=== PATIENT | female | born 1990 | race African-American/Black ===

== ENCOUNTER 2016-09-23 11:01 | Emergency (ER) | payer SELFPAY ==
[~2016-09-23] VITALS: Ht 157.5 cm; Wt 154.5 kg
[~2016-09-23 11:01] MED LIST: ZOFRAN ODT4 MG PO
[2016-09-23 11:08] VITALS: BP 123/88; TEMP 97.1
[2016-09-23 11:53] VITALS: PULSE 85
[2016-09-24] MEDS ORDERED: DOXYCYCLINE 10100 MG PO (15:29)
== END 2016-09-23 11:54 | disposition home or self-care (01) ==
LOC: COL.ER 11:01
DX: H65.92 Unspecified nonsuppurative otitis media, left ear (principal); F17.210 Nicotine dependence, cigarettes, uncomplicated

== ENCOUNTER 2016-09-24 12:54 | Emergency (ER) | payer SELFPAY ==
[~2016-09-24] VITALS: Ht 157.5 cm; Wt 152.7 kg
[2016-09-24 13:00] VITALS: BP 120/96; TEMP 98.1
[2016-09-24] MEDS ORDERED: DOXYCYCLINE 10100 MG PO (15:29)
[2016-09-24 15:53] VITALS: PULSE 86
== END 2016-09-24 15:54 | disposition home or self-care (01) ==
LOC: COL.ER 12:54
DX: J20.9 Acute bronchitis, unspecified (principal); R00.2 Palpitations
CPT/HCPCS: J8540

== ENCOUNTER 2016-10-11 17:30 | Emergency (ER) | payer SELFPAY ==
[~2016-10-11] VITALS: Ht 157.5 cm; Wt 156.0 kg
[~2016-10-11 17:30] MED LIST changes: +DOXYCYCLINE 10100 MG PO
[2016-10-11 17:35] VITALS: BP 110/83; TEMP 99.2
[2016-10-11 19:02] LABS: INFLUENZA B NEGATIVE
[2016-10-11] MEDS ORDERED: AMOXICILLIN 50500 MG PO (19:21)
[2016-10-11 19:52] VITALS: PULSE 94
== END 2016-10-11 19:53 | disposition home or self-care (01) ==
LOC: COL.ER 17:30
PROVIDERS: Nurse Practitioner
DX: H66.92 Otitis media, unspecified, left ear (principal)

== ENCOUNTER 2016-11-10 11:30 | Emergency (ER) | payer SELFPAY ==
[~2016-11-10] VITALS: Ht 157.5 cm; Wt 155.7 kg
[2016-11-10 11:30] VITALS: BP 133/74; PULSE 90; TEMP 97.7
[~2016-11-10 11:30] MED LIST changes: +AMOXICILLIN 50500 MG PO
[2016-11-10] MEDS ORDERED: NAPROSYN500 MG PO (12:09)
[2016-11-10 12:11] LABS: PH 7 (5-8); SQUAMOUS EPITHELIAL None Seen /hpf; URINE APPEARANCE Clear; URINE BACTERIA None Seen /hpf; URINE BILIRUBIN Negative (NEGATIVE); URINE BLOOD 1+ (NEGATIVE); URINE COLOR Straw; URINE GLUCOSE Negative (NEGATIVE); URINE KETONE Negative (NEGATIVE); URINE RBC 0-2 /hpf; URINE UROBILINOGEN Negative (NEGATIVE); URINE WBC 0-2 /hpf
== END 2016-11-10 12:24 | disposition home or self-care (01) ==
LOC: COL.ER 11:30
PROVIDERS: Emergency Medicine
DX: M79.641 Pain in right hand (principal); R20.0 Anesthesia of skin

== ENCOUNTER 2017-03-14 07:17 | Emergency (ER) | payer SELFPAY ==
[~2017-03-14] VITALS: Ht 157.5 cm; Wt 155.5 kg
[~2017-03-14 07:17] MED LIST changes: +NAPROSYN500 MG PO
[2017-03-14 07:26] VITALS: BP 134/92; TEMP 97
[2017-03-14] MEDS ORDERED: NORCO 325 MG-51 TAB PO (07:29)
[2017-03-14] MEDS ORDERED: AMOXICILLIN 50500 MG PO (07:30)
[2017-03-14 08:19] LABS: BASO % 0.7 % (0.0-2.0); EOS # 0.1 (0.0-0.7); EOS % 1.7 % (0-4.0); GRAN # 3.2 (1.4-6.5); GRAN % 54.6 % (42.2-75.2); HEMATOCRIT 38.9 % (37.0-47.0); HEMOGLOBIN 12.6 g/dl (12.5-16.0); LYMPH % 34.9 % (20.0-51.0); MEAN CELL VOLUME 84 fl (80.0-100.0); MEAN CORPUSCULAR HEMOGLOBIN 27 pg (27.0-31.0); MEAN CORPUSCULAR HGB CONC 32 g/dl (33.0-37.0); MEAN PLATELET VOLUME 8.7 fl (7.4-10.4); MONO # 0.5 (0.1-0.6); MONO % 7.9 % (1.7-9.3); PLATELET COUNT 376 K/mm3 (130-400); RED BLOOD COUNT 4.61 M/mm3 (4.10-5.30); REDCELL DISTRIBUTION WIDTH-CV 13.7 % (11.5-14.5); WHITE BLOOD COUNT 5.8 K/mm3 (4.8-10.8)
[2017-03-14 08:32] LABS: ANION GAP 10 mmol/L (7-16); BLOOD UREA NITROGEN 10 mg/dL (7-17); CARBON DIOXIDE 25 mmol/L (22-30); CHLORIDE 105 mmol/L (98-107); CREATININE, serum 0.81 mg/dL (0.52-1.25); GLUCOSE 99 mg/dL (74-106); SODIUM 140 mmol/L (137-145)
[2017-03-14 08:44] LABS: TROPONIN-I < 0.012 ng/mL (0.000-0.034)
[2017-03-14 09:00] VITALS: PULSE 73
== END 2017-03-14 09:00 | disposition home or self-care (01) ==
LOC: COL.ER 07:17
PROVIDERS: Physician Assistant
DX: K20.9 Esophagitis, unspecified (principal); F17.210 Nicotine dependence, cigarettes, uncomplicated

== ENCOUNTER 2017-11-18 15:23 | Emergency (ER) | payer OTHER ==
[~2017-11-18] VITALS: Ht 157.5 cm; Wt 142.6 kg
[~2017-11-18 15:23] MED LIST changes: +NORCO 325 MG-51 TAB PO
[2017-11-18 15:48] VITALS: BP 134/83; PULSE 92; TEMP 98
[2017-11-18] MEDS ORDERED: ROBAXIN 75750 MG/TAB PO (16:49)
== END 2017-11-18 17:00 | disposition home or self-care (01) ==
LOC: COL.ER 15:23
DX: S39.012A Strain of muscle, fascia and tendon of lower back, initial encounter (principal); Z87.891 Personal history of nicotine dependence; V43.62XA Car passenger injured in collision with other type car in traffic accident, initial encounter; Y93.I9 Activity, other involving external motion

== ENCOUNTER 2019-07-11 20:56 | Emergency (ER) | payer SELFPAY ==
[~2019-07-11] VITALS: Ht 157.5 cm; Wt 165.5 kg
[~2019-07-11 20:56] MED LIST changes: +ROBAXIN 75750 MG/TAB PO
[2019-07-11 21:04] VITALS: BP 122/68; TEMP 98.4
[2019-07-11 21:43] LABS: BASO % 0.6 % (0.0-2.0); EOS # 0.1 (0.0-0.7); EOS % 1.5 % (0-4.0); GRAN # 3.6 (1.4-6.5); GRAN % 50.1 % (42.2-75.2); HEMATOCRIT 42.1 % (37.0-47.0); HEMOGLOBIN 13.5 g/dl (12.5-16.0); LYMPH # 2.9 (1.2-3.4); LYMPH % 40.4 % (20.0-51.0); MEAN CELL VOLUME 87 fl (80.0-100.0); MEAN CORPUSCULAR HEMOGLOBIN 28 pg (27.0-31.0); MEAN CORPUSCULAR HGB CONC 32 g/dl (33.0-37.0); MEAN PLATELET VOLUME 8.8 fl (7.4-10.4); MONO # 0.5 (0.1-0.6); MONO % 7.1 % (1.7-9.3); PLATELET COUNT 361 K/mm3 (130-400); RED BLOOD COUNT 4.83 M/mm3 (4.10-5.30); REDCELL DISTRIBUTION WIDTH-CV 13.8 % (11.5-14.5)
[2019-07-11 21:58] LABS: ALBUMIN 4.1 gm/dL (3.5-5.0); BILIRUBIN,TOTAL 0.4 mg/dL (0.0-1.0); C-REACTIVE PROTEIN 1.2 mg/dL (0.0-0.9); CALCIUM 9.1 mg/dL (8.4-10.2); CREATININE, serum 0.78 (0.52-1.25); TOTAL PROTEIN 7.7 gm/dL (6.4-8.2)
[2019-07-11 23:05] LABS: COLLECTION METHOD CLEAN CATCH
[2019-07-11 23:10] LABS: PH 7 (5-8); SQUAMOUS EPITHELIAL 0-2 /hpf; URINE APPEARANCE Clear; URINE BACTERIA None Seen /hpf; URINE BILIRUBIN Negative (NEGATIVE); URINE BLOOD Negative (NEGATIVE); URINE COLOR Yellow; URINE GLUCOSE Negative (NEGATIVE); URINE KETONE Negative (NEGATIVE); URINE LEUKOCYTE ESTERASE Negative (NEGATIVE); URINE NITRATE Negative (NEGATIVE); URINE PROTEIN(semi-quant) Negative (NEGATIVE); URINE RBC 0-2 /hpf
[2019-07-11 23:31] VITALS: PULSE 76
== END 2019-07-11 23:31 | disposition home or self-care (01) ==
LOC: COL.ER 20:56
PROVIDERS: Nurse Practitioner
DX: A59.9 Trichomoniasis, unspecified (principal); F17.210 Nicotine dependence, cigarettes, uncomplicated

== ENCOUNTER 2020-05-28 11:06 | Emergency (ER) | payer BC ==
[~2020-05-28] VITALS: Ht 157.5 cm; Wt 149.9 kg
[2020-05-28 11:11] VITALS: TEMP 98
[2020-05-28] MEDS ORDERED: FASTIN30 MG PO (11:17)
[2020-05-28 13:02] LABS: COLLECTION METHOD CLEAN CATCH
[2020-05-28 13:08] LABS: MUCOUS Present /lpf; PH 5 (5-8); SQUAMOUS EPITHELIAL 0-2 /hpf; URINE APPEARANCE Clear; URINE BACTERIA None Seen /hpf; URINE BILIRUBIN Negative (NEGATIVE); URINE BLOOD Negative (NEGATIVE); URINE COLOR Yellow; URINE GLUCOSE Negative (NEGATIVE); URINE KETONE Negative (NEGATIVE); URINE LEUKOCYTE ESTERASE Negative (NEGATIVE); URINE NITRATE Negative (NEGATIVE); URINE PROTEIN(semi-quant) Negative (NEGATIVE); URINE RBC 0-2 /hpf; URINE UROBILINOGEN Negative (NEGATIVE)
[2020-05-28 13:27] LABS: BASO % 0.6 % (0.0-2.0); EOS # 0.1 (0.0-0.7); EOS % 1.2 % (0-4.0); GRAN # 2.6 (1.4-6.5); GRAN % 51.6 % (42.2-75.2); HEMOGLOBIN 12.5 g/dl (12.5-16.0); LYMPH # 1.9 (1.2-3.4); LYMPH % 39.1 % (20.0-51.0); MEAN CELL VOLUME 88 fl (80.0-100.0); MEAN CORPUSCULAR HEMOGLOBIN 28 pg (27.0-31.0); MEAN CORPUSCULAR HGB CONC 32 g/dl (33.0-37.0); MEAN PLATELET VOLUME 9.1 fl (7.4-10.4); MONO # 0.4 (0.1-0.6); MONO % 7.3 % (1.7-9.3); PLATELET COUNT 264 K/mm3 (130-400); RED BLOOD COUNT 4.43 M/mm3 (4.10-5.30); REDCELL DISTRIBUTION WIDTH-CV 13.4 % (11.5-14.5)
[2020-05-28 14:24] VITALS: BP 116/78; PULSE 66
== END 2020-05-28 14:38 | disposition home or self-care (01) ==
LOC: COL.ER 11:06
PROVIDERS: Emergency Medicine
DX: R11.2 Nausea with vomiting, unspecified (principal); R63.0 Anorexia; R19.7 Diarrhea, unspecified; R10.13 Epigastric pain
CPT/HCPCS: J2550

== ENCOUNTER 2020-09-30 18:23 | Emergency (ER) | payer BC ==
[~2020-09-30] VITALS: Ht 157.5 cm; Wt 142.7 kg
[~2020-09-30 18:23] MED LIST changes: +FASTIN30 MG PO
[2020-09-30 19:00] VITALS: TEMP 97.5
[2020-09-30 21:11] LABS: COLLECTION METHOD CLEAN CATCH
[2020-09-30 21:17] LABS: MUCOUS Present /lpf; PH 6 (5-8); SQUAMOUS EPITHELIAL 0-2 /hpf; URINE APPEARANCE Clear; URINE BACTERIA Rare /hpf; URINE BILIRUBIN Negative (NEGATIVE); URINE BLOOD Negative (NEGATIVE); URINE COLOR Yellow; URINE GLUCOSE Negative (NEGATIVE); URINE KETONE Negative (NEGATIVE); URINE LEUKOCYTE ESTERASE Negative (NEGATIVE); URINE NITRATE Negative (NEGATIVE); URINE PROTEIN(semi-quant) Negative (NEGATIVE); URINE RBC None Seen /hpf; URINE UROBILINOGEN Negative (NEGATIVE)
[2020-09-30 23:04] LABS: BASO % 0.4 % (0.0-2.0); EOS # 0.1 (0.0-0.7); EOS % 1.7 % (0-4.0); GRAN # 3.9 (1.4-6.5); GRAN % 54.8 % (42.2-75.2); HEMATOCRIT 39.6 % (37.0-47.0); LYMPH # 2.5 (1.2-3.4); LYMPH % 34.9 % (20.0-51.0); MEAN CELL VOLUME 87 fl (80.0-100.0); MEAN CORPUSCULAR HEMOGLOBIN 29 pg (27.0-31.0); MEAN CORPUSCULAR HGB CONC 33 g/dl (33.0-37.0); MEAN PLATELET VOLUME 8.8 fl (7.4-10.4); MONO # 0.6 (0.1-0.6); MONO % 8.1 % (1.7-9.3); PLATELET COUNT 321 K/mm3 (130-400); RED BLOOD COUNT 4.55 M/mm3 (4.10-5.30); REDCELL DISTRIBUTION WIDTH-CV 13.2 % (11.5-14.5)
[2020-09-30 23:16] LABS: BILIRUBIN,TOTAL 0.6 mg/dL (0.0-1.0); C-REACTIVE PROTEIN 1.9 mg/dL (0.0-0.9); CREATININE, serum 0.85 (0.52-1.25); POTASSIUM 4.1 mmol/L (3.4-5.0); TOTAL PROTEIN 7.8 gm/dL (6.4-8.2)
[2020-09-30] MEDS ORDERED: FLAGYL500 MG PO (23:32)
[2020-09-30 23:56] VITALS: BP 135/89; PULSE 91
[2021-01-26] MEDS ORDERED: AMOXICILLIN 50500 MG PO (11:44)
== END 2020-09-30 23:56 | disposition home or self-care (01) ==
LOC: COL.ER 18:23
PROVIDERS: Nurse Practitioner
DX: N76.0 Acute vaginitis (principal); R10.84 Generalized abdominal pain; F17.210 Nicotine dependence, cigarettes, uncomplicated; Z32.02 Encounter for pregnancy test, result negative
CPT/HCPCS: J1885

== ENCOUNTER 2020-11-08 11:13 | Emergency (ER) | payer BC ==
[~2020-11-08] VITALS: Ht 157.5 cm; Wt 140.9 kg
[~2020-11-08 11:13] MED LIST changes: +FLAGYL500 MG PO
[2020-11-08 11:31] VITALS: TEMP 97.7
[2020-11-08 12:31] LABS: COLLECTION METHOD CLEAN CATCH
[2020-11-08 12:40] LABS: MUCOUS Present /lpf; PH 5 (5-8); SQUAMOUS EPITHELIAL 0-2 /hpf; URINE APPEARANCE Clear; URINE BACTERIA None Seen /hpf; URINE BILIRUBIN Negative (NEGATIVE); URINE BLOOD Negative (NEGATIVE); URINE COLOR Yellow; URINE GLUCOSE Negative (NEGATIVE); URINE KETONE Negative (NEGATIVE); URINE LEUKOCYTE ESTERASE Negative (NEGATIVE); URINE NITRATE Negative (NEGATIVE); URINE PROTEIN(semi-quant) Negative (NEGATIVE); URINE RBC None Seen /hpf; URINE UROBILINOGEN Negative (NEGATIVE)
[2020-11-08 12:46] LABS: BASO % 0.5 % (0.0-2.0); EOS # 0.1 (0.0-0.7); EOS % 1.1 % (0-4.0); GRAN # 2.7 (1.4-6.5); GRAN % 50.1 % (42.2-75.2); HEMATOCRIT 41.7 % (37.0-47.0); HEMOGLOBIN 13.3 g/dl (12.5-16.0); LYMPH # 2.3 (1.2-3.4); LYMPH % 42.2 % (20.0-51.0); MEAN CELL VOLUME 90 fl (80.0-100.0); MEAN CORPUSCULAR HEMOGLOBIN 29 pg (27.0-31.0); MEAN CORPUSCULAR HGB CONC 32 g/dl (33.0-37.0); MEAN PLATELET VOLUME 8.9 fl (7.4-10.4); MONO # 0.3 (0.1-0.6); MONO % 5.9 % (1.7-9.3); PLATELET COUNT 345 K/mm3 (130-400); RED BLOOD COUNT 4.66 M/mm3 (4.10-5.30); REDCELL DISTRIBUTION WIDTH-CV 13.5 % (11.5-14.5)
[2020-11-08 12:57] LABS: ALANINE AMINOTRANSFERASE 16 U/L (4-34); ALBUMIN 4.2 gm/dL (3.5-5.0); ALKALINE PHOSPHATASE 75 U/L (50-136); ANION GAP 8 mmol/L (7-16); AST,SGOT 60 U/L (15-37); BILIRUBIN,TOTAL 0.3 mg/dL (0.0-1.0); BLOOD UREA NITROGEN 13 mg/dL (7-17); CARBON DIOXIDE 26 mmol/L (22-30); CHLORIDE 106 mmol/L (98-107); CREATININE, serum 0.81 (0.52-1.25); GLUCOSE 88 mg/dL (74-106); LIPASE 67 U/L (23-300); POTASSIUM 3.8 mmol/L (3.4-5.0); SODIUM 140 mmol/L (137-145); TOTAL PROTEIN 8.6 gm/dL (6.4-8.2)
[2020-11-08 13:36] LABS: TROPONIN-I < 0.012 ng/mL (0.000-0.035)
[2020-11-08 14:07] VITALS: BP 115/68; PULSE 77
[2021-01-26] MEDS ORDERED: AMOXICILLIN 50500 MG PO (11:44)
== END 2020-11-08 14:09 | disposition home or self-care (01) ==
LOC: COL.ER 11:13
PROVIDERS: Emergency Medicine
DX: R74.01 Elevation of levels of liver transaminase levels (principal); R53.81 Other malaise; F17.210 Nicotine dependence, cigarettes, uncomplicated
CPT/HCPCS: J2405; J7030

== ENCOUNTER 2021-01-24 20:54 | Emergency (ER) | payer BC ==
[~2021-01-24] VITALS: Ht 157.5 cm; Wt 145.6 kg
[2021-01-24 21:20] VITALS: TEMP 98.9
[2021-01-24 22:32] LABS: STREP SCREEN NEGATIVE
[2021-01-25 00:31] VITALS: BP 132/97; PULSE 82
[2021-01-26] MEDS ORDERED: AMOXICILLIN 50500 MG PO (11:44)
== END 2021-01-25 00:34 | disposition home or self-care (01) ==
LOC: COL.ER 20:54
PROVIDERS: Personal Emergency Response Attendant
DX: J03.90 Acute tonsillitis, unspecified (principal)

== ENCOUNTER 2021-05-28 08:34 | Emergency (ER) | payer SELFPAY ==
[~2021-05-28] VITALS: Ht 157.5 cm; Wt 140.9 kg
[2021-05-28 08:47] VITALS: BP 138/95; TEMP 98.7
[2021-05-28] MEDS ORDERED: AKTOB 5 ML5 ML OS (09:51)
[2021-05-28] MEDS ORDERED: AMOXICILLIN 50500 MG PO (09:51)
[2021-05-28 10:05] VITALS: PULSE 88
== END 2021-05-28 10:05 | disposition home or self-care (01) ==
LOC: COL.ER 08:34
DX: H18.822 Corneal disorder due to contact lens, left eye (principal); K04.7 Periapical abscess without sinus; F17.200 Nicotine dependence, unspecified, uncomplicated

== ENCOUNTER 2021-07-17 14:47 | Emergency (ER) | payer SELFPAY ==
[~2021-07-17] VITALS: Ht 157.5 cm; Wt 136.4 kg
[~2021-07-17 14:47] MED LIST changes: +AKTOB 5 ML5 ML OS; +VOLTAREN 75 DR75 MG PO
[2021-07-17 15:04] VITALS: TEMP 98.4
[2021-07-17 16:57] LABS: COLLECTION METHOD CLEAN CATCH
[2021-07-17 16:58] LABS: ALANINE AMINOTRANSFERASE 8 U/L (0-55); ALBUMIN 3.4 gm/dL (3.5-5.0); ALKALINE PHOSPHATASE 63 U/L (40-150); ANION GAP 10 mmol/L (7-16); AST,SGOT 13 U/L (5-34); BILIRUBIN,TOTAL 0.6 mg/dL (0.2-1.2); BLOOD UREA NITROGEN 8 mg/dL (7-19); CALCIUM 8.6 mg/dL (8.4-10.2); CARBON DIOXIDE 21 mmol/L (22-29); CHLORIDE 109 mmol/L (98-107); GLUCOSE 93 mg/dL (70-99); LIPASE 20 U/L (8-78); SODIUM 140 mmol/L (136-145); TOTAL PROTEIN 6.7 gm/dL (6.2-8.1)
[2021-07-17 17:03] LABS: MUCOUS Present (NOT PRESENT); PH 6 (5-8); SQUAMOUS EPITHELIAL 0-2 /hpf (0-10); URINE APPEARANCE Clear (CLEAR/HAZY); URINE BACTERIA None Seen (NONE SEEN); URINE BILIRUBIN Negative (NEGATIVE); URINE BLOOD Negative (NEGATIVE); URINE COLOR Yellow (YELLOW); URINE GLUCOSE Negative (NEGATIVE); URINE KETONE Negative (NEGATIVE); URINE LEUKOCYTE ESTERASE Negative (NEGATIVE); URINE NITRATE Negative (NEGATIVE); URINE PROTEIN(semi-quant) Negative (NEGATIVE); URINE UROBILINOGEN Negative (NEGATIVE)
[2021-07-17 17:08] LABS: TROPONIN-I < 0.010 ng/mL (0.00-0.033)
[2021-07-17] MEDS ORDERED: PEPCID 20MG TAB20 MG PO (17:15)
[2021-07-17] MEDS ORDERED: ZOFRAN ODT4 MG PO (17:15)
[2021-07-17 17:40] VITALS: BP 128/71; PULSE 80
== END 2021-07-17 17:40 | disposition home or self-care (01) ==
LOC: COL.ER 14:47
PROVIDERS: Emergency Medicine
DX: R10.13 Epigastric pain (principal)
CPT/HCPCS: J1885; J2405

== ENCOUNTER 2021-07-27 07:30 | Outpatient (RCR) | payer SELFPAY ==
[2021-07-16 09:30] VITALS: BP 131/91; PULSE 74; TEMP 98.8
[2021-07-20 07:17] VITALS: BP 127/87; PULSE 86; TEMP 98
[~2021-07-27] VITALS: Ht 157.5 cm; Wt 140.1 kg
[~2021-07-27 07:30] MED LIST changes: +PEPCID 20MG TAB20 MG PO
[2021-07-27 08:00] VITALS: BP 134/111; PULSE 86; TEMP 97.6
== END 2021-07-27 09:08 ==
LOC: EUO 07:30
DX: Z20.3 Contact with and (suspected) exposure to rabies (principal); W55.81XA Bitten by other mammals, initial encounter

== ENCOUNTER 2022-04-12 00:11 | Emergency (ER) | payer SELFPAY ==
[~2022-04-12] VITALS: Ht 157.5 cm; Wt 144.5 kg
[2022-04-12 00:16] VITALS: TEMP 98.3
[2022-04-12 00:49] LABS: BASO % 0.5 % (0.0-2.0); EOS # 0.1 K/mm3 (0.0-0.7); EOS % 1.6 % (0.0-4.0); GRAN # 4.3 K/mm3 (1.4-6.5); HEMATOCRIT 40.6 % (37.0-47.0); HEMOGLOBIN 13.5 g/dl (12.5-16.0); LYMPH # 3.3 K/mm3 (1.2-3.4); LYMPH % 39.4 % (20.0-51.0); MEAN CELL VOLUME 88 fl (80.0-100.0); MEAN CORPUSCULAR HEMOGLOBIN 29 pg (27-31); MEAN CORPUSCULAR HGB CONC 33 g/dl (33.0-37.0); MEAN PLATELET VOLUME 8.4 fl (7.4-10.4); MONO # 0.5 K/mm3 (0.1-0.6); MONO % 6.3 % (1.7-9.3); PLATELET COUNT 380 K/mm3 (130-400); RED BLOOD COUNT 4.64 M/mm3 (4.10-5.30); REDCELL DISTRIBUTION WIDTH-CV 13.1 % (11.5-14.5)
[2022-04-12 01:03] LABS: ALBUMIN 3.7 gm/dL (3.5-5.0); BILIRUBIN,TOTAL 0.3 mg/dL (0.2-1.2); CALCIUM 9.3 mg/dL (8.4-10.2); CREATININE, serum 0.96 mg/dL (0.57-1.11); POTASSIUM 3.5 mmol/L (3.5-4.5); TOTAL PROTEIN 7.7 gm/dL (6.2-8.1)
[2022-04-12 01:09] LABS: TROPONIN-I 0.01 ng/mL (0.00-0.033)
[2022-04-12 01:44] VITALS: BP 122/78; PULSE 76
== END 2022-04-12 01:45 | disposition home or self-care (01) ==
LOC: COL.ER 00:11
PROVIDERS: Emergency Medicine
DX: R42 Dizziness and giddiness (principal); Z20.822 Contact with and (suspected) exposure to COVID-19
CPT/HCPCS: J2405; J7030

== ENCOUNTER 2022-04-23 20:08 | Emergency (ER) | payer SELFPAY ==
[~2022-04-23] VITALS: Ht 157.5 cm; Wt 141.4 kg
[2022-04-23 20:15] VITALS: TEMP 97.8
[2022-04-23 21:28] LABS: BASO % 0.6 % (0.0-2.0); EOS # 0.1 K/mm3 (0.0-0.7); EOS % 1.2 % (0.0-4.0); GRAN # 3.4 K/mm3 (1.4-6.5); HEMATOCRIT 41.6 % (37.0-47.0); LYMPH # 2.9 K/mm3 (1.2-3.4); LYMPH % 42.1 % (20.0-51.0); MEAN CELL VOLUME 88 fl (80.0-100.0); MEAN CORPUSCULAR HEMOGLOBIN 30 pg (27-31); MEAN CORPUSCULAR HGB CONC 34 g/dl (33.0-37.0); MEAN PLATELET VOLUME 8.8 fl (7.4-10.4); MONO # 0.5 K/mm3 (0.1-0.6); PLATELET COUNT 321 K/mm3 (130-400); RED BLOOD COUNT 4.71 M/mm3 (4.10-5.30); REDCELL DISTRIBUTION WIDTH-CV 13.1 % (11.5-14.5)
[2022-04-23 21:48] LABS: ALBUMIN 3.6 gm/dL (3.5-5.0); BILIRUBIN,TOTAL 0.3 mg/dL (0.2-1.2); CALCIUM 9.1 mg/dL (8.4-10.2); CREATININE, serum 0.91 mg/dL (0.57-1.11); POTASSIUM 4.2 mmol/L (3.5-4.5); TOTAL PROTEIN 7.5 gm/dL (6.2-8.1)
[2022-04-23 21:54] LABS: TROPONIN-I 0.013 ng/mL (0.00-0.033)
[2022-04-23 22:24] VITALS: BP 135/72; PULSE 85
== END 2022-04-23 22:24 | disposition home or self-care (01) ==
LOC: COL.ER 20:08
PROVIDERS: Nurse Practitioner
DX: N64.4 Mastodynia (principal); R07.9 Chest pain, unspecified; Z28.311 Partially vaccinated for COVID-19

== ENCOUNTER 2022-06-03 11:20 | Emergency (ER) | payer SELFPAY ==
[2022-06-03 11:37] VITALS: BP 146/89; TEMP 97.7
[2022-06-03] MEDS ORDERED: MOBIC 7.5MG7.5 MG PO (13:08)
[2022-06-03 13:35] VITALS: PULSE 70
== END 2022-06-03 13:35 | disposition home or self-care (01) ==
LOC: COL.ER 11:20
DX: M25.531 Pain in right wrist (principal); M25.532 Pain in left wrist; F17.200 Nicotine dependence, unspecified, uncomplicated; X50.3XXA Overexertion from repetitive movements, initial encounter; Y92.59 Other trade areas as the place of occurrence of the external cause; Y99.0 Civilian activity done for income or pay